=== PATIENT | male | born 1990 | race Caucasian/White ===

== ENCOUNTER → 2017-01-13 | Outpatient (CLI) | payer BC | LOC: RAD 15:40 | PROVIDERS: ATTEND Internal Medicine Gastroenterology | DX: R10.84 Generalized abdominal pain (principal) | CPT/HCPCS: 76700 ==

== ENCOUNTER 2020-04-28 18:22 | Emergency (ER) | payer BC ==
[2020-04-28 18:29] VITALS: BP 125/73
--- NOTE | 2020-04-28 19:26 | RADIOLOGY REPORT (SQ) ---
EXAM DESCRIPTION: WRIST LEFT 2 VIEWS IMAGES COMPLETED DATE/TIME: 04/28/2020 6:04 pm REASON FOR STUDY: fish hook FB inner midline wrist. COMPARISON: None NUMBER OF VIEWS: Two views TECHNIQUE: AP and lateral radiographic images acquired of the left wrist. LIMITATIONS: None. FINDINGS: MINERALIZATION: Normal. BONES: No acute fracture or dislocation. No worrisome bone lesions. Normal alignment. SOFT TISSUES: There is a curvilinear radiopaque foreign body in the volar surface soft tissues overly ing the distal wrist. OTHER: No other significant finding. IMPRESSION: Radiopaque curvilinear foreign body in the volar surface soft tissues of the distal 0 wr ist consistent with a tip of a fishhook. No acute fracture or destructive bone lesion. . TECHNICAL DOCUMENTATION: JOB ID: [id number] [employer]- All Rights Reserved Reading location - IP/workstation name: [email or web address]
[2020-04-28] MEDS ORDERED: DIPH/PERTUSS(ACELL)/TETANUS VAC/PF 0.5 ML SYR (>=10YO) IM ONE (20:52)
--- NOTE | 2020-04-28 21:00 | ER Document Report ---
ED Foreign Body - General Chief Complaint: Foreign Body Stated Complaint: FISH HOOK IN LEFT WRIST Time Seen by Provider: 04/28/20 20:27 Primary Care Provider: TOM MORALES DO [ACTIVE STAFF] - Follow up as needed Mode of Arrival: Ambulatory Information source: Patient, Parent Notes: Patient is a 29-year-old male comes emergency room accompanied by his mother with complaint of having a fishhook in his right volar wrist area. Patient states he was cleaning out his workshop and somehow there was a fishhook in the way and got hooked into his right wrist area. Patient took a pair of pliers and cut the shank off. He only left approximately half a millimeter of shank to work with. Patient denies any other medical problems. TRAVEL OUTSIDE OF THE [place] IN LAST 30 DAYS: No - HPI Location of foreign body: Wrist Onset: Just prior to arrival Onset/Duration: Sudden Quality of pain: Achy Severity: Moderate Pain Level: 3 Context: Injury Associated symptoms: None Exacerbated by: Movement Relieved by: Denies Similar symptoms previously: No Recently seen / treated by doctor: No - Related Data Allergies/Adverse Reactions: No Known Allergies Allergy (Unverified 04/28/20 18:44) Home Medications: denies Past Medical History - General Information source: Patient - Social History Smoking Status: Never Smoker Chew tobacco use (# tins/day): No Frequency of alcohol use: None Drug Abuse: None Lives with: Family Family History: Reviewed & Not Pertinent Patient has homicidal ideation: No Review of Systems - Review of Systems Constitutional: No symptoms reported EENT: No symptoms reported Cardiovascular: No symptoms reported Respiratory: No symptoms reported Gastrointestinal: No symptoms reported Genitourinary: No symptoms reported Male Genitourinary: No symptoms reported Musculoskeletal: No symptoms reported Skin: See HPI, Other - [place] volar aspect of the right wrist Hematologic/Lymphatic: No symptoms reported Neurological/Psychological: No symptoms reported -: Yes All other systems reviewed and negative Physical Exam - Vital signs Vitals: Temp Pulse Resp BP Pulse Ox 98.9 F 61 19 125/73 99 04/28/20 18:28 04/28/20 18:28 04/28/20 18:28 04/28/20 18:28 04/28/20 18:28 Interpretation: Normal - Notes Notes: PHYSICAL EXAMINATION: GENERAL: Well-appearing, well-nourished and in no acute distress. LUNGS: Breath sounds clear to auscultation bilaterally and equal. No wheezes rales or rhonchi. HEART: Regular rate and rhythm without murmurs Musculoskeletal: Normal range of motion, no pitting or edema. No cyanosis. Examination patient's area concern is his right wrist volar aspect right at the distal portion of the radius. Patient has a fishhook just underneath the skin. There is no hematoma no sign of radial artery involvement. Patient has good cap refill in all the fingers of the right hand. 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 He has good flexion-extension of the wrist as well as rotation. Patient also displays good sensation at the distal tips of all fingers on the right hand. NEUROLOGICAL: Normal speech, normal gait. Normal sensory, motor exams PSYCH: Normal mood, normal affect. SKIN: Warm, Dry, normal turgor, no rashes or lesions noted. Course - Re-evaluation Re-evalutation: 04/28/20 20:55 Removal of the fishhook was simple and that patient laid his wrist with the dorsal aspect down I used 1 mL of 1% lidocaine without epi after cleaning it around the shank in the hook with Betadine. I then used 1 mL of 1% lidocaine injected around the mara. I waited approximately 3 minutes I then took a pair of curved forceps hooked onto the shank I took a 14-gauge Cathlon with the needle and ran it around the curve to the mara over top of the mara and was able to back out the hook on the second attempt. I allowed the area to bleed for a few seconds and then put a absorbable dressing on and am having people should not soak the area when he gets home. We will place him on some doxycycline since the hook was used in salt water. - Vital Signs Vital signs: Temp Pulse Resp BP Pulse Ox 98.9 F 61 19 125/73 99 04/28/20 18:28 04/28/20 18:28 04/28/20 18:28 04/28/20 18:28 04/28/20 18:28 Discharge - Discharge Clinical Impression: History of retained foreign body fully removed [place] injury to finger Qualifiers: Encounter type: initial encounter Laterality: right Qualified Code(s): S69.91XA - Unspecified injury of right wrist, hand and finger(s), initial encounter Condition: Stable Disposition: HOME, SELF-CARE Instructions: Foreign Body ([facility]) Additional Instructions: Home and rest. Soak the area when the antibacterial soap I given you. Take all antibiotics. Return to ER if you have any concerns or problems. Prescriptions: Doxycycline Hyclate 100 mg PO BID #20 tablet.dr Forms: Elevated Blood Pressure Referrals: TOM MORALES DO [ACTIVE STAFF] - Follow up as needed
== END 2020-04-28 21:20 | disposition home or self-care (01) ==
LOC: ER 18:22
DX: S61.541A Puncture wound with foreign body of right wrist, initial encounter (principal); X58.XXXA Exposure to other specified factors, initial encounter; Y93.E9 Activity, other interior property and clothing maintenance; Y92.008 Other place in unspecified non-institutional (private) residence as the place of occurrence of the external cause; Z23 Encounter for immunization
CPT/HCPCS: 90471; 90715; 99283